=== PATIENT | female | born 1980 | race Caucasian/White ===

== ENCOUNTER 2017-10-09 22:50 | Emergency (ER) | payer OTHER ==
[2017-10-09 23:24] VITALS: O2SAT 100
--- NOTE | 2017-10-10 00:14 | ED PDOC ---
HPI: General Adult Time Seen by Provider: 10/09/17 23:28 Chief Complaint (Nursing): Dental Pain Chief Complaint (Provider): Left jaw swelling and pain History Per: Patient History/Exam Limitations: no limitations Onset/Duration Of Symptoms: Hrs (24) Current Symptoms Are (Timing): Still Present Additional Complaint(s): Joyce Nichols is a 37 year old female, with no significant past medical history , who presents to the emergency department complaining of left jaw swelling onset for x24 hrs. Patient reports yesterday she had a mild toothache and minimal swelling to left jaw which in the last 24 hrs has progressively got worst. She denies any present toothache but states her left jaw hurts and is swollen with no associated warmth. Patient is tender along the left side of face , no associated fever, chills, nausea or vomit. No further medical complaints. PMD: None provided. Past Medical History Reviewed: Historical Data, Nursing Documentation, Vital Signs Vital Signs: Last Vital Signs Temp 98.6 F 10/09/17 23:21 Pulse 65 10/09/17 23:21 Resp BP 130/84 10/09/17 23:21 Pulse Ox 100 10/10/17 04:15 - Medical History PMH: No Chronic Diseases - Surgical History Surgical History: No Surg Hx - Family History Family History: States: No Known Family Hx - Social History Current smoker - smoking cessation education provided: No Alcohol: None Drugs: Denies - Home Medications Home Medications: Ambulatory Orders Medication Instructions Recorded Amoxicillin/Clavulanate [Augmentin 1 tab PO BID #14 tab 10/10/17 875 MG-125 MG] Ibuprofen [Motrin Tab] 600 mg PO Q6 PRN #16 tab 10/10/17 - Allergies Allergies/Adverse Reactions: Allergies Allergy/AdvReac Type Severity Reaction Status Date / Time No Known Allergies Allergy Verified 10/09/17 23:21 Review of Systems ROS Statement: Except As Marked, All Systems Reviewed And Found Negative Constitutional: Negative for: Fever, Chills ENT: Positive for: Other (left jaw pain and swelling). Negative for: Mouth Pain (toothache) Gastrointestinal: Negative for: Nausea, Vomiting Physical Exam - Reviewed Nursing Documentation Reviewed: Yes Vital Signs Reviewed: Yes - Physical Exam Appears: Positive for: Non-toxic, No Acute Distress Head Exam: Positive for: ATRAUMATIC, NORMOCEPHALIC Skin: Positive for: Normal Color, Warm, Dry Eye Exam: Positive for: Normal appearance, EOMI, PERRL ENT: Positive for: Other (3cm firm mass to left jaw, appears to be contiguous with left parotid gland. Mild tenderness no warmth, erythema or induration. Some dental caries inside mouth but no tenderness to teeth) Neck: Positive for: Painless ROM Cardiovascular/Chest: Positive for: Regular Rate, Rhythm. Negative for: Murmur Respiratory: Positive for: Normal Breath Sounds. Negative for: Respiratory Distress Gastrointestinal/Abdominal: Positive for: Normal Exam, Soft. Negative for: Tenderness Back: Positive for: Normal Inspection. Negative for: L CVA Tenderness, R CVA Tenderness, Vertebral Tenderness Extremity: Positive for: Normal ROM (upper and lower extremities). Negative for : Deformity, Swelling Neurologic/Psych: Positive for: Alert, Oriented. Negative for: Motor/Sensory Deficits - Laboratory Results Result Diagrams: 10/10/17 02:08 10/10/17 02:08 - ECG O2 Sat by Pulse Oximetry: 100 (RA) Pulse Ox Interpretation: Normal Medical Decision Making Medical Decision Making: Initial Impression: 37 y/o female with acute sialadenitis Initial Plan: --CT mandible w IV Contrast [CT] --CMP --Urine --Urine dipstick --CBC w/ differential --Blood culture --Reevaluation 04:[address] FINDINGS: There is a large amount of stranding and soft tissue edema along the lateral aspect of the left mandible consistent with cellulitis. There is no walled off fluid collection/ abscess identified although please note that significant artifact is present from dental fillings. There is a lucency surrounding the first molar of the left mandible consistent with periapical abscess. There is a lucency along the lateral aspect of the left maxillary second molar extending through the cortex consistent with periapical abscess. There is no associated drainable soft tissue abscess. There is a single air foci in the soft tissues posteriorly. Multiple submandibular lymph nodes are present. The vasculature appears normal. Trace mucosal thickening of the left maxillary sinus. The airway is patent. IMPRESSION: Extensive cellulitis along the lateral left mandible without drainable abscess collection. Periapical abscesses of the left mandibular and left maxillary teeth as described in the body of the report. 04:16 -labs reviewed showed mild leukocytosis. Patient remained comfortable for duration of time in ED. No fever, one dose of augmentin was administered here. Patient encouraged to follow up with dentist, provided referral for information to dental clinics in the area. Diagnosis is dental abscess. ----- Scribe Attestation: Documented by Blayne Evans, acting as a scribe for Dakota Hudson MD. Provider Scribe Attestation: All medical record entries made by the Scribe were at my direction and personally dictated by me. I have reviewed the chart and agree that the record accurately reflects my personal performance of the history, physical exam, medical decision making, and the department course for this patient. I have also personally directed, reviewed, and agree with the discharge instructions and disposition. Disposition - Clinical Impression Clinical Impression: Dental abscess - Disposition Disposition: Routine/Home Disposition Time: 04:16 Condition: STABLE Prescriptions: Amoxicillin/Clavulanate [Augmentin 875 MG-125 MG] 1 tab PO BID #14 tab Ibuprofen [Motrin Tab] 600 mg PO Q6 PRN #16 tab PRN Reason: toothache Instructions: Tooth Abscess (DC) Forms: [employer] (Azeri)
[2017-10-10 02:13] LABS: BASO # 0.1 K/uL (0.0-0.2); BASO % 0.7 % (0.0-2.0); EOS # 0.1 K/uL (0.0-0.7); EOS % 0.7 % (0.0-4.0); HEMOGLOBIN 13.4 g/dL (12.0-16.0); LYMPH # 2.9 K/uL (1.0-4.3); LYMPH % 19.4 % (20.0-40.0); MEAN CELL VOLUME 79.5 fl (81.0-99.0); MEAN CORPUSCULAR HEMOGLOBIN 26.6 pg (27.0-31.0); MEAN CORPUSCULAR HGB CONC 33.5 g/dL (33.0-37.0); MEAN PLATELET VOLUME 7.9 fl (7.2-11.7); MONO # 1.3 K/uL (0.0-0.8); MONO % 8.7 % (0.0-10.0); NEUT # 10.5 K/uL (1.8-7.0); NEUT % 70.5 % (50.0-75.0); RBC 5.03 Mil/uL (3.80-5.20); WHITE BLOOD COUNT 14.9 K/uL (4.8-10.8)
[2017-10-10 02:22] LABS: ALB/GLOB RATIO 1.3 (1.0-2.1); ALBUMIN 4.2 g/dL (3.5-5.0); CALCIUM 9.1 mg/dL (8.4-10.2); GFR AFRICAN-AMERICAN > 60; GFR NON-AFRICAN AMERICAN > 60
[2017-10-10 02:33] LABS: ALT/SGPT 29 U/L (9-52); AST/SGOT 27 U/L (14-36); BLOOD UREA NITROGEN 12 mg/dl (7-17)
[2017-10-10] MEDS ORDERED: Iohexol 300 100 ML IJ ONE (02:33)
[2017-10-10] MEDS ORDERED: Sodium Chloride 0.9% 100 ML ONE (02:34)
--- NOTE | 2017-10-10 04:13 | CT ---
EXAM: CT Maxillofacial With Intravenous Contrast EXAM DATE/TIME: 10/09/2017 11:53 PM CLINICAL HISTORY: 37 years old, female; Signs and symptoms; Mass, lump, or swelling; Other: Left mandible; Additional info: Left mandibular swelling TECHNIQUE: Axial computed tomography images of the face with intravenous contrast. All CT scans at this facility use one or more dose reduction techniques, viz.: automated exposure control; ma/kV adjustment per patient size (including targeted exams where dose is matched to indication; i.e. head); or iterative reconstruction technique. Coronal and sagittal reformatted images were created and reviewed. CONTRAST: 80 mL of [id number] administered intravenously. COMPARISON: No relevant prior studies available. FINDINGS: There is a large amount of stranding and soft tissue edema along the lateral aspect of the left mandible consistent with cellulitis. There is no walled off fluid collection/abscess identified although please note that significant artifact is present from dental fillings. There is a lucency surrounding the first molar of the left mandible consistent with periapical abscess. There is a lucency along the lateral aspect of the left maxillary second molar extending through the cortex consistent with periapical abscess. There is no associated drainable soft tissue abscess. There is a single air foci in the soft tissues posteriorly. Multiple submandibular lymph nodes are present. The vasculature appears normal. Trace mucosal thickening of the left maxillary sinus. The airway is patent. IMPRESSION: Extensive cellulitis along the lateral left mandible without drainable abscess collection. Periapical abscesses of the left mandibular and left maxillary teeth as described in the body of the report.
[2017-10-10] MEDS ORDERED: Amoxicillin-Clav 875-125 mg Tab PO STA (04:14)
[2017-10-10] MEDS ORDERED: Amoxicillin-Clav 875-125 mg Tab PO ONE (04:23)
[2017-10-10 04:29] VITALS: BP 119/72; PULSE 86; RESP 18; TEMP 98.1
== END 2017-10-10 04:44 | disposition home or self-care (01) ==
LOC: H.ER 22:50
DX: K04.7 Periapical abscess without sinus (principal); D72.829 Elevated white blood cell count, unspecified
CPT/HCPCS: 70488; 80053; 81025; 85025; 87040; 99283; Q9967